=== PATIENT | male | born 1930 | race Caucasian/White ===

== ENCOUNTER → 2016-06-14 | Day surgery (SDC) | payer MEDICARE, BC ==
[2016-06-09 13:26] VITALS: BMI 34.9
[~2016-06-14] MED LIST: LACTATED RINGERS 1,000 ML IV SCH; SIMETHICONE 40 MG/0.6 ML DROPS 2,000 MG/30 ML BOTTLE PO ONE
== END ==
LOC: ORWHC2ENDO 06:36
DX: I99.8 Other disorder of circulatory system (principal); K92.89 Other specified diseases of the digestive system; D50.9 Iron deficiency anemia, unspecified; Z87.19 Personal history of other diseases of the digestive system
CPT/HCPCS: 91110